=== PATIENT | male | born 1975 | race Caucasian/White ===

== ENCOUNTER 2019-03-13 11:51 | Emergency (ER) | payer MEDICAID ==
[~2019-03-13] VITALS: Ht 177.8 cm; Wt 84.8 kg
[2019-03-13 11:59] VITALS: Ht 177.8 cm; Wt 84.8 kg
[2019-03-13 13:46] VITALS: BP 120/80
== END 2019-03-13 13:46 | disposition home or self-care (01) ==
LOC: ED 11:51
DX: J34.0 Abscess, furuncle and carbuncle of nose (principal)